=== PATIENT | male | born 1995 | race Caucasian/White ===

== ENCOUNTER → 2023-11-11 | Emergency (ER) | payer BC, OTHER ==
[~2023-11-11] MED LIST: ONDANSETRON 4 MG (ODT) TAB ONE
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
[2023-11-11 21:18] VITALS: BP 147/62; TEMP 98.6; O2SAT 99
== END ==
LOC: ER 19:44
DX: E11.65 Type 2 diabetes mellitus with hyperglycemia (principal); Z79.4 Long term (current) use of insulin; F17.210 Nicotine dependence, cigarettes, uncomplicated
CPT/HCPCS: 82947; 99283; Q0162